=== PATIENT | female | born 1955 | race Caucasian/White ===

== ENCOUNTER → 2022-03-03 14:06 | Outpatient (CLI) | payer MEDICARE, BC, OTHER, SELFPAY ==
--- NOTE | 2022-03-03 14:15 | DI.US.S_ITS ---
PROCEDURE: US ABDOMEN LIMITED INDICATIONS: Right upper quadrant pain TECHNIQUE: Real-time focused scanning was performed of the abdomen, with image documentation. COMPARISON: None. FINDINGS: The liver demonstrates normal size. The liver demonstrates generalized moderately increased echogenicity. This decreases ultrasound sensitivity for detection of hepatic masses. No findings of gallstones or sludge are seen. The gallbladder wall is not thickened, measuring 3 mm or less. No specific pericholecystic fluid is seen. The sonographic Villafuerte sign is negative. There is no biliary dilatation, the common bile duct measures 4 mm. No significant pancreatic abnormality is seen on these images. IMPRESSION: The gallbladder demonstrates a normal sonographic appearance. No biliary dilatation is seen. The liver demonstrates increased echogenicity. This finding is nonspecific, yet it is most commonly attributed to fatty infiltration. Dictated by: Koko Sharpe M.D. on 03/03/2022 at 14:24 Approved by: Koko Sharpe M.D. on 03/03/2022 at 14:24
== END ==
PROVIDERS: Referring Provider Physician Assistant; Visit Provider Physician Assistant
DX: R10.11 Right upper quadrant pain (principal)
CPT/HCPCS: 76705

== ENCOUNTER → 2022-07-14 10:51 | Outpatient (CLI) | payer MEDICARE, BC, OTHER, SELFPAY ==
--- NOTE | 2022-07-14 11:07 | DI.DEXA.S_ITS ---
Bone Density Report Name: RAKAN VO Age: 67 Sex: Female Ethnicity: White Date of : 1955 Indication: postmenopausal; screening for osteoporosis; Referring Provider: MARIA DOLORES ALDANA Study: Bone densitometry was performed. Exam Date: July 14, 2022 Accession number: [id number] Bone Density: Region BMD T-score Z-score Classification AP Spine(L1-L4) 1.160 1.0 2.8 Normal Femoral Neck (Left) 0.841 -0.1 1.5 Normal Total Hip (Left) 1.029 0.7 2.0 Normal Femoral Neck (Right) 0.836 -0.1 1.4 Normal Total Hip (Right) 1.051 0.9 2.1 Normal Total Hip Mean 1.040 0.8 2.1 Normal World Health Organization criteria for BMD impression classify patients as: Normal (T-score at or above -1.0), Osteopenia (T-score between -1.0 and -2.5), or Osteoporosis (T-score at or below -2.5). 10-year Fracture Risk: FRAX not reported because: All T-scores for Spine Total, Hip Total, Femoral Neck at or above -1.0 Impression: The patient has normal bone mass. Discussion: BONE DENSITY IS ABOVE THE MINIMUM DESIRABLE LEVEL AT ALL SKELETAL SITES TESTED. This patient?s bone mineral density is above the minimum desirable level (T-score -1.0 or better) at all sites measured. The patient should follow a healthful lifestyle (good nutrition with adequate calcium and vitamin D, and appropriate weight-bearing exercise). Follow-Up: Consider repeating this study in 5 years or sooner if there is some new clinical indication. Reported by: JASMIN CAMILO M.D. on 07/14/2022 11:14:00 AM.
== END ==
PROVIDERS: PCP Physician Assistant; Referring Provider Physician Assistant; Visit Provider Physician Assistant
DX: Z78.0 Asymptomatic menopausal state (principal); Z13.820 Encounter for screening for osteoporosis
CPT/HCPCS: 77080

== ENCOUNTER → 2022-09-06 14:40 | Outpatient (CLI) | payer MEDICARE, BC, OTHER, SELFPAY ==
--- NOTE | 2022-09-06 | DI.RAD.S_ITS ---
PROCEDURE: XR ELBOW RT MIN 3V INDICATIONS: PAIN X2 MONTHS TECHNIQUE: 3 views of the elbow were acquired. COMPARISON: None. FINDINGS: Bones: No fractures or dislocations. No suspicious bony lesions. Dfgs-jt-mwyvjxer osteoarthritic changes with prominent periarticular osteophyte in coronoid process and olecranon. Soft tissues: No elbow joint effusion. No suspicious soft tissue calcifications. IMPRESSION: Dfvq-vj-vhtfndtw osteoarthritis. Dictated by: Lucila Simpson M.D. on 09/07/2022 at 8:40 Approved by: Lucila Simpson M.D. on 09/07/2022 at 8:42
== END ==
PROVIDERS: PCP Physician Assistant; Referring Provider Physician Assistant; Visit Provider Physician Assistant
DX: M19.021 Primary osteoarthritis, right elbow (principal); M25.521 Pain in right elbow
CPT/HCPCS: 73080

== ENCOUNTER → 2022-09-21 12:19 | Outpatient (CLI) | payer MEDICARE, BC, OTHER, SELFPAY ==
--- NOTE | 2022-09-21 | DI.MG.S_ITS ---
BILATERAL DIGITAL SCREENING MAMMOGRAM 3D/2D WITH CAD: 09/21/2022 CLINICAL: Routine screening. Family history of breast cancer. Comparison is made to exams dated: 04/28/2019 mammogram and 05/23/2018 mammogram - outside. Both breasts are heterogeneously dense, which may obscure small masses (category c / 51-75% glandular tissue). Current study was also evaluated with a Computer Aided Detection (CAD) system. No significant masses, calcifications, or other findings are seen in either breast. There has been no significant interval change. IMPRESSION: NEGATIVE There is no mammographic evidence of malignancy. A 1 year screening mammogram is recommended. Based on the Tyrer Cuzick model (a risk assessment model) the patient's lifetime risk is 5.4% and her 10 year risk is 2.6%. According to the ACR, ACS, and NCCN guidelines, an annual breast MRI exam along with mammogram is recommended if the patient's lifetime risk is 20% or greater. This exam was interpreted at Station ID: [id number]. NOTE: For mammograms, a report in lay terms will be sent to the patient. Approximately 15% of breast malignancies will not be visualized mammographically. In the management of a palpable breast mass, a negative mammogram must not discourage biopsy of a clinically suspicious lesion. Electronically Signed By: Gerald sofia/tu:09/21/2022 18:41:18 letter sent: Normal Exam ACR BI-RADS Category 1: Negative [id number]
== END ==
PROVIDERS: PCP Physician Assistant; Referring Provider Physician Assistant; Visit Provider Physician Assistant
DX: Z12.31 Encounter for screening mammogram for malignant neoplasm of breast (principal); Z80.3 Family history of malignant neoplasm of breast
CPT/HCPCS: 77063; 77067

== ENCOUNTER → 2022-10-10 13:48 | Outpatient (CLI) | payer MEDICARE, BC, OTHER, SELFPAY ==
--- NOTE | 2022-10-10 | DI.RAD.S_ITS ---
PROCEDURE: XR PELVIS 1-2V INDICATIONS: Radiculopathy, sacral and sacrococcygeal region TECHNIQUE: 1 view(s) of the pelvis acquired. COMPARISON: None. FINDINGS: Bones: No fractures or dislocations. No suspicious bony lesions. Mild bilateral hip osteoarthritis. Soft tissues: Visualized bowel gas pattern is normal. Coarse calcification projects over the mid pelvis possibly related to uterine fibroid. IMPRESSION: Mild bilateral hip osteoarthritis. Dictated by: Ly Sarmiento MD, PhD on 10/10/2022 at 14:18 Approved by: Ly Sarmiento MD, PhD on 10/10/2022 at 14:19
== END ==
PROVIDERS: PCP Physician Assistant; Referring Provider Specialist; Visit Provider Specialist
DX: M54.18 Radiculopathy, sacral and sacrococcygeal region (principal); M16.0 Bilateral primary osteoarthritis of hip
CPT/HCPCS: 72170

== ENCOUNTER → 2024-03-16 10:50 | Outpatient (CLI) | payer MEDICARE, OTHER, SELFPAY ==
--- NOTE | 2024-03-16 10:54 | DI.MRI.S_ITS ---
PROCEDURE: MR KNEE RT WO CON INDICATIONS: Effusion, right knee TECHNIQUE: Noncontrast sagittal PD fast spin echo and T2 fast spin echo with fat saturation, sagittal 3-D FLASH with fat saturation; coronal T1 spin echo and PD fast spin echo with fat saturation, and axial PD fast spin echo with fat saturation through the knee. COMPARISON: [facility] [place], CR, XR KNEE 4+ VIEWS RIGHT, 04/12/2023, 10:07. [facility] [place], CR, XR KNEE ARTHRITIC SERIES BI, 10/26/2023, 10:57. FINDINGS: Image quality: Excellent. Anterior cruciate ligament: Intact. Posterior cruciate ligament: Intact. Medial collateral ligament: Intact. Lateral collateral ligament: Intact. Medial meniscus: Complex degenerative tearing and maceration of the medial meniscus, including a deep radial component at the meniscal body with associated meniscal extrusion. Lateral meniscus: Focal vertical longitudinal tearing of the anterior root attachment. Intrasubstance degeneration in the meniscal body. Medial and lateral tendons: The semimembranosus tendon insertions appear intact. Visualized portions of the pes anserinus tendons appear normal. The popliteus tendon is intact. Iliotibial band appears normal. Anterior structures: The quadriceps and patellar tendons appear intact. No patellar subluxation. No femoral trochlear dysplasia or ventral trochlear prominence. No edema in the infrapatellar fat pad. Bones: No bone marrow contusions or fractures. Medial femorotibial cartilage: Diffuse full thickness cartilage loss throughout the weight-bearing portion of the medial femorotibial compartment with moderate subchondral edema as well as subchondral cystic changes and marginal osteophyte formation. There is likely mild remodeling of the medial tibial plateau articular surface. Lateral femorotibial cartilage: Partial-thickness cartilage irregularity in the weight-bearing portion. Full-thickness cartilage loss is seen at the anterior weight-bearing portion of the lateral femoral condyle with subchondral osteophyte formation. Marginal osteophytes are present. Patellofemoral cartilage: High-grade partial-thickness cartilage loss throughout the patella with small marginal osteophytes. Partial-thickness cartilage irregularity is seen in the femoral trochlea, most notably at the trochlear groove. Soft tissues: Moderate to large joint effusion. Small medial popliteal cyst. The visualized musculature is age-appropriate in bulk. IMPRESSION: 1. Full-thickness cartilage loss throughout the weight-bearing portion of the medial femorotibial compartment with moderate subchondral edema and subchondral cystic changes. Focal full-thickness cartilage loss in the lateral compartment. Grade 3 chondromalacia in the patellofemoral compartment. 2. Complex degenerative tearing and maceration of the medial meniscus including a dominant radial component at the meniscal body and extrusion of the meniscus beyond the femorotibial joint line. 3. Focal vertical longitudinal tearing of the lateral meniscus at the anterior root attachment superimposed on labral degeneration. 4. Cruciate and collateral ligaments are intact. 5. Moderate to large joint effusion. Small medial popliteal cyst. Approved by: Bill Gerardo M.D. on 03/17/2024 at 11:31
== END ==
LOC: MRI 10:53
PROVIDERS: PCP Physician Assistant; Referring Provider Specialist; Visit Provider Specialist
DX: S83.231A Complex tear of medial meniscus, current injury, right knee, initial encounter (principal); S83.281A Other tear of lateral meniscus, current injury, right knee, initial encounter; M22.41 Chondromalacia patellae, right knee; M25.461 Effusion, right knee; M25.561 Pain in right knee; M25.361 Other instability, right knee; M71.21 Synovial cyst of popliteal space [Baker], right knee
CPT/HCPCS: 73721

== ENCOUNTER → 2024-09-04 08:57 | Outpatient (CLI) | payer MEDICARE, OTHER, SELFPAY ==
--- NOTE | 2024-09-04 08:59 | DI.US.S_ITS ---
PROCEDURE: US ABDOMEN COMPLETE INDICATIONS: ABNORMAL LABS ?CIRRHOSIS OR HEPATOSPLENOMEGALY TECHNIQUE: Real-time scanning was performed of the abdominal and retroperitoneal organs, with image documentation. COMPARISON: [facility], , US ABDOMEN LIMITED, 03/03/2022, 14:20. FINDINGS: Liver: Hepatic parenchyma shows diffuse increased echogenicity consistent with fatty infiltration. Gallbladder: Sonolucent without evidence cholelithiasis, gallbladder wall thickening or pericholecystic fluid. No sonographic Villafuerte sign. Biliary ducts: Intrahepatic bile ducts are non-dilated. Extrahepatic bile duct caliber measures 3 mm. Normal is 6-7 mm or less in diameter, or 10 mm or less post-cholecystectomy. Pancreas: Visualized portions of the pancreas are sonographically normal. Spleen: Spleen is normal in size and homogeneous in echotexture. Kidneys: Kidneys are normal in size and echotexture. Right kidney measures 8.7 cm long; left kidney measures 10.3 cm long. No hydronephrosis or nephrolithiasis. No solid masses. Aorta: Visualized aorta is normal in caliber at less than 3 cm. Iliacs: Proximal common iliac arteries are normal in caliber at less than 2.5 cm. IVC: Intrahepatic inferior vena cava is patent. Miscellaneous: No free abdominal fluid. IMPRESSION: Hepatic steatosis without focal mass lesion Approved by: Salty Matute M.D. on 09/04/2024 at 16:05
== END ==
PROVIDERS: PCP Physician Assistant; Referring Provider Physician Assistant; Visit Provider Physician Assistant
DX: K76.0 Fatty (change of) liver, not elsewhere classified (principal); R89.9 Unspecified abnormal finding in specimens from other organs, systems and tissues
CPT/HCPCS: 76700

== ENCOUNTER → 2024-10-14 13:52 | Outpatient (CLI) | payer MEDICARE, OTHER, SELFPAY ==
--- NOTE | 2024-10-14 14:14 | EKG_ITS ---
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
--- NOTE | 2024-10-14 14:24 | DI.MG.S_ITS ---
MM screening mammo BI: 10/14/2024. BI-RADS: 1 CLINICAL: 69-year old female for bilateral screening mammogram. Tyrer-Cuzick lifetime risk of 13.0%. Current reported family history of breast cancer: sister and second sister. PRIOR EXAMS 09/21/2022, 04/28/2019. MAMMOGRAPHY TECHNIQUE: 2D and 3D (tomosynthesis) digital mammographic views obtained, with additional images as needed for full coverage. Current study was also evaluated with a Computer Aided Detection (CAD) system. DENSITY C. The breasts are heterogeneously dense, which may obscure small masses. MAMMOGRAPHY FINDINGS Bilateral: No suspicious mass, asymmetry, microcalcification, or other abnormality seen. No significant change from comparison. IMPRESSION: * No evidence of malignancy. RECOMMENDATIONS Bilateral * Annual screening mammography. OVERALL ASSESSMENT CATEGORY BI-RADS-1: Negative. The [employer] [place] [employer] recommends annual screening mammography beginning at age 40 for women with average risk of breast cancer. ELECTRONICALLY SIGNED: Deepali Love M.D. on 10/14/2024 at 09:04:59 PM PT Interpreting Station ID: [id number]
[2024-10-14 14:48] LABS: Add Manual Diff / Slide Review NO; Hematocrit 35.9 % (36-46); Hemoglobin 12.3 g/dL (12.0-16.0); Lymphocytes Absolute Auto 1500 /uL (1100-4500); Mean Corpuscular HGB Conc 34.2 % (30-36); Mean Corpuscular Hemoglobin 31.7 PG (26-34); Mean Corpuscular Volume 92.7 fL (80-100); Platelet Count 253 X10^3/uL (150-400)
[2024-10-14 15:06] LABS: HEMOLYSIS < 15 (0-50)
[2024-10-14 15:10] LABS: Albumin 4.2 g/dL (3.5-5.0); Blood Urea Nitrogen 26 mg/dL (7-17); Calcium 9.5 mg/dL (8.4-10.2); Carbon Dioxide 27 mmol/L (22-32); Chloride 102 mmol/L (98-107); Estimated Glomerular Filt Rate > 60 mL/min (>60); Glucose 89 mg/dL (70-99); Potassium 4.5 mmol/L (3.4-5.1); Sodium 137 mmol/L (137-145)
[2024-10-14 15:13] LABS: Hemoglobin A1C% w Est Avg Glu 5.6 % (4.0-6.0)
[2024-10-14 16:27] LABS: Vitamin D 25 Hydroxy (D3) 51.2 ng/mL (30.0-100.0)
[2024-10-14 22:00] LABS: Prealbumin 30.1 mg/dL (17.6-36.0)
== END ==
PROVIDERS: PCP Physician Assistant; Referring Provider Physician Assistant; Visit Provider Orthopaedic Surgery Adult Reconstructive Orthopaedic Surgery
DX: Z12.31 Encounter for screening mammogram for malignant neoplasm of breast (principal); Z01.818 Encounter for other preprocedural examination; Z80.3 Family history of malignant neoplasm of breast; R92.333 Mammographic heterogeneous density, bilateral breasts; E11.9 Type 2 diabetes mellitus without complications; E55.9 Vitamin D deficiency, unspecified
CPT/HCPCS: 36415; 77063; 77067; 80048; 82040; 82306; 83036; 84134; 85025; 93005

== ENCOUNTER → 2024-12-15 16:51 | Outpatient (CLI) | payer MEDICARE, OTHER, SELFPAY ==
[2024-12-15 17:51] LABS: COVID-19 CEPHEID 4-PLEX PCR POSITIVE (Negative); Influenza A - CEPHEID Flu A NEGATIVE (NEGATIVE); Influenza B - CEPHEID Flu B NEGATIVE (NEGATIVE)
== END ==
PROVIDERS: Family Provider Physician Assistant; PCP Physician Assistant; Visit Provider Registered Nurse
DX: J02.9 Acute pharyngitis, unspecified (principal)
CPT/HCPCS: 87637

== ENCOUNTER 2024-12-29 06:29 | Day surgery (SDC) | payer MEDICARE, OTHER, SELFPAY ==
[2024-12-15 08:00] VITALS: BMI 27.4
[2024-12-29] VITALS (9 sets, daily range): BP systolic 112–165; BP diastolic 55–79; PULSE 15–86; RESP 10–66; TEMP 36.4–37; O2SAT 94–100; BMI 27.4
--- NOTE | 2024-12-29 07:48 | P.HP_ITS ---
History of Present Illness History of Present Illness Chief complaint: right TKA Surgery w/outpatient bed Narrative: CHIEF COMPLAINT I'm here for my right total knee arthroplasty. SUBJECTIVE The patient has been experiencing severe right knee pain which has been refractory to multiple nonoperative modalities. The patient has expressed a preference for not using strong pain medications such as oxycodone unless it is absolutely necessary and only for breakthrough pain. The patient has also indicated that they have had medical anxiety and panic attacks in the past, which they have not typically discussed with others. The patient has been managing pain with Tylenol, baby aspirin, and Celebrex. The patient is concerned about potential medication interactions, particularly those that might affect mental function. SOCIAL HISTORY - The patient is involved in a [employer] group every Sunday. PERTINENT PMH - History of medical anxiety and panic attacks. PRIOR HIP/KNEE PROCEDURES None PHYSICAL EXAM Knee Exam: No open wounds. TTP around knee. SILT L2-S1 ASSESSMENT Severe right knee osteoarthritis refractory to conservative management, necessitating right total knee arthroplasty. PLAN The patient is scheduled for a right total knee arthroplasty. I discussed the medication regimen postoperatively, including the use of Tylenol, baby aspirin, and Celebrex. The patient is advised to avoid strong pain medications unless necessary for breakthrough pain. I provided instructions on physical activity post-surgery, emphasizing the importance of ambulation to prevent blood clots while limiting steps to less than 1,000 per day initially. - Schedule for right total knee arthroplasty. - Continue baby aspirin and Celebrex as discussed. - Use Tylenol as needed up to 3,000 mg per day. - Avoid oxycodone unless breakthrough pain occurs. - Follow postoperative physical therapy instructions. SURGICAL PLAN The patient has exhausted, conservative measures and is likely a candidate for total knee arthroplasty. We will begin the preoperative optimization process in anticipation of eventually scheduling surgery. We will ensure that the patient is an appropriate candidate for this surgery by evaluating their laboratory results, EKG, baseline medical conditions and medications prior to scheduling t he surgery. The risks and benefits of major elective surgery in the form of a knee replacement were discussed today in detail with the patient. All of the patient's questions were answered. Additional patient education materials regarding the risks, benefits, and outcomes associated with total knee arthroplasty were provided to the patient in an online patient counseling series which can be viewed at the following link: [email or web address]. There are both medical and surgical risks associated with total knee replacements and these have been outlined in detail to the patient. These medical risks include DVT/blood clots which can sometimes travel to the lung and be lethal as well as pneumonia, heart attacks, acute kidney injuries and other medical complications. The most serious surgical complication is a periprosthetic joint infection which can be very difficult to treat and requires repeat surgery. The 5 year mortality of a periprosthetic joint infection is 25% in some studies. The most common reasons for repeat knee surgery - also known as revision surgery - have also been provided to the patient with data from the [place] [employer] Joint Replacement Registry. We have also discussed that other less common medical and surgical complications can occur. Additionally, we have reviewed the patient satisfaction rate of 85% with total knee arthroplasty which means that even if there are no major complications with their knee replacement there is a 15% risk they will not be satisfied with their final result. I encouraged the patient to followup with additional questions at future visits after they have had time to review and consider the risks and benefits of this surgery before moving forward with it. PLANNED SURGICAL PROCEDURE AND IMPLANTS: Right total knee arthroplasty using cemented Zulay Persona with unresurfaced patella PERIOPERATIVE CONSIDERATIONS: - Monitor for anxiety during perioperative period. - Avoid opioids unless there is breakthrough pain. POSTOPERATIVE DVT PROPHYLAXIS: Aspirin 81 mg BID XRAYS AT NEXT VISIT: Long-leg scanogram PLAIN LANGUAGE SUMMARY We are planning for your right total knee replacement surgery. You've tried many treatments already, and this surgery should help relieve your knee pain. We'll make sure you're ready for surgery by checking your medical conditions and medication. After surgery, you'll take baby aspirin to prevent blood clots and continue with your current pain management plan. Avoid using oxycodone unless absolutely necessary. We'll start gentle movements and slowly increase activity to help with healing while avoiding too many steps at first. If you have any questions, feel free to ask at your follow-up visits. FOLLOWUP - Follow up as needed with no specific imaging required unless otherwise ind icated. [facility] Medical History (Updated 12/22/24 @ 10:55 by Niki Buitrago RN) COVID-19 (12/15/24) Anxiety Fatty liver disease, nonalcoholic HLD (hyperlipidemia) Primary osteoarthritis of right knee Osteoarthritis Asthma Knee pain (~2021) Tinnitus (~1998) Hearing loss (~1998) Gastritis (~2020) Diverticular disease (~2020) PFD (pelvic floor dysfunction) Chronic pelvic pain syndrome in female Surgical History Anesthesia Social History household members: spouse Smoking Status: Former smoker alcohol intake: former Meds Home Medications and Allergies Home Medications ?Medication ?Instructions ?Recorded ?Confirmed ?Type progesterone micronized 200 mg 200 mg PO ONCE PM 12/0612/29/24 History capsule conjugated estrogens 0.3 mg tablet 0.3 mg PO DAILY 12/29/24 History testosterone 10 mg/0.5 1 pump transdermal QAM 09/1812/29/24 History gram/actuation transdermal gel pump acetaminophen 500 mg tablet 1,000 mg (2 x 500 mg) PO Q 8H PRN 11/12/24 12/15/24 Rx (Tylenol Extra Strength) post-op pain #60 tabs docusate sodium 100 mg capsule 100 mg PO BID PRN Post op 11/12/24 12/15/24 Rx (Colace) constipation #60 caps ondansetron 4 mg disintegrating 4 mg PO Q8H PRN Post o p nausea and 11/12/24 12/15/24 Rx tablet vomiting #7 tabs oxycodone 5 mg tablet 5 mg PO Q6H PRN Post op pain #25 11/12/24 12/15/24 Rx tabs pantoprazole 40 mg tablet,delayed 40 mg PO DAILY #60 t abs 11/12/24 12/29/24 Rx release celecoxib 200 mg capsule (Celebrex) [address] PO DAILY Po [address] op. #30 caps 12/10/24 12/15/24 Rx melatonin 1 mg tablet 1 mg PO BEDTIME 12/15/2409/17 History Allergies Allergy/AdvReac Type Severity Reaction Status Date / Time epinephrine AdvReac Severe Seizure Verified 12/29/24 07:29 hydroxychloroquine AdvReac SOB, rash. Verified 12/29/24 07:29 Objective Labs Labs: Laboratory Results - last 24 hr 12/29/24 07:40 POC Whole Bld Glucose 97 Assessment & Plan Time-Based Coding :: [TOTAL MINUTES] spent with patient and on the chart (including review of chart, obtaining history, exam, reviewing outside data, placing orders, documenting exam and treatment plan, and counseling patient) on [DATE]. PROFEE Paper Handler Document charge(s): No
[2024-12-29] MEDS: ACETAMINOPHEN 325 MG TABLET 975 MG PO (07:49)
[2024-12-29] MEDS: LACTATED RINGERS 1,000 ML 42 ML IV ×2 (07:49→12:13)
--- NOTE | 2024-12-29 07:54 | DI.RAD.S_ITS ---
PROCEDURE: XR KNEE RT 1TO2V INDICATIONS: TKA TECHNIQUE: 2 view(s) of the knee acquired. COMPARISON: None. FINDINGS: Bones: Patient is status post knee joint arthroplasty. Hardware components are in expected positions. Visualized bony structures are intact. Soft tissues: Overlying postoperative changes are noted. IMPRESSION: Expected post-operative appearance of a knee arthroplasty. Dictated by: Sahil Perez M.D. on 12/29/2024 at 13:26 Approved by: Sahil Perez M.D. on 12/29/2024 at 13:26
[2024-12-29] MEDS: TRANEXAMIC ACID 1,000 MG VIAL 1000 MG INJ ×2 (09:51→11:02)
[2024-12-29] MEDS: KETOROLAC 30 MG/ML VIAL 15 MG INJ (10:13)
--- NOTE | 2024-12-29 10:18 | SUR.OPER ---
Supine on padded OR bed. Pillow under head, arms secured on padded armboards <90 degree abduction. Safety belt across torso. Non-operative leg secured with tape over blanket over lower leg. Operative leg secured in DeMayo/Walter/Nathe positioner. Foam padded brace at thigh of operative leg. All pressure points padded and covered, PA in room at time of positioning, approved final position.
--- NOTE | 2024-12-29 11:28 | P.OP_ITS ---
Operative Date/Time/Diagnoses Date of procedure: 12/29/24 Time of procedure: 10:00 Pre-op diagnosis: Right knee osteoarthritis Post-op diagnosis: same Procedure & Clinicians Procedure: Right total knee arthroplasty Same procedure(s) as scheduled: Yes Surgeon: Salty Collins Assisted?: Yes Rags Laborer: Lala Tom Anesthesia Type: Spinal, MAC +/- and Local Operative Notes Findings: Severe arthritis Closure Type: primary Applied: implant(s) Estimated Blood Loss (mL): 50 Tourniquet time (min): 52 Procedure in detail: Right Gap-Balanced Zluay Persona Medial-Congruent Primary Total Knee Arthroplasty Implants: * Size 8 narrow Cruciate Retaining Femoral Component * Size E Tibial Component * Size 10 Medial Congruent Polyethylene Insert * Unresurfaced Patella Procedure Summary: This 69-year-old female patient had relatively low bone quality so I utilized uncemented fixation for her total knee arthroplasty. She had varus arthritis so I cut the tibia in slight varus. The result of this was approximately 1 degree of medial tightness relative to the lateral compartment and terminal extension. The flexion gap balanced at 0? of external rotation. I performed a medial reduction osteotomy at the conclusion of the case in order to attempt to equalize any residual medial tightness. Balancing was excellent throughout. Minimal cuts were utilized and a 10 mm polyethylene insert was used as the 11 mm allowed full extension but only when the knee was pushed. Procedure in Detail: This patient was seen preoperatively and evaluated for knee pain which was refractory to numerous nonoperative treatment modalities. Their pain correlated with radiographic changes demonstrating significant degeneration in the knee joint. The risks and benefits of continued nonoperative management versus operative management were discussed at length and all of the patient?s questions were answered. Additional educational materials providing further details beyond our discussion in clinic were provided via a publicly available patient education video which included the incidence of medical complications associated with total knee arthroplasty, reasons for revision following total knee arthropl asty, and patient satisfaction rates following total knee arthroplasty. With this understanding of the risks inherent to the procedure, the patient elected to move forward with operative management. Following preoperative optimization, the patient was scheduled for surgery. The patient was met in the preoperative holding area the day of the procedure and all questions were answered. The patient?s nares were swabbed in order to decolonize them from MRSA. Informed consent was signed and the right limb was marked with indelible ink.? The patient was brought back to the operating room where anesthesia was induced. The patient was transferred to the operating table and all bony prominences were padded. The operative site was prepped and draped in the usual sterile fashion. A second prep stick was utilized following drape placement. The incision was marked corresponding to the medial aspect of the tibial tubercle and the patella. Ioban was wrapped circumferentially around the knee. Prior to incision, tranexamic acid and cefazolin were administered. Templating images were displayed. A timeout procedure was performed verifying the patient?s identity, medical comorbidities, allergies, relevant medications, anesthesia type and the surgical plan. All present were in agreement. The assistance of a physician assistant chief train dispatcher was required for positioning, room setup, soft tissue retraction and wound closure. Without this assistance, the procedure would have been significantly more challenging and time consuming.?? The tourniquet was inflated prior to incision. I made an anterior incision over the knee, dissected through the subcutaneous tissues and identified the lateral border of the VMO. Medial and lateral soft tissue flaps were developed. A mid- vastus arthrotomy was performed ensuring that adequate capsular tissue would remain for closure at the conclusion of the procedure. The knee was brought into extension and the medial soft tissues were released off the joint line of the tibia. Tissue overlying the distal anterior femur was released to allow for later assessment for anterior notching but left in place. A portion of the retropatellar fat pad was excised while protecting the patellar tendon. The patella was everted. The patella was not resurfaced. Osteophytes were excised and a lateral facetectomy was performed. The patella was released from its everted position.?? I flexed the knee to 90 degrees and placed retractors to allow access to the notch. An opening reamer was used to gain access to the femoral canal and an intramedullary odalis was introduced into the canal. Diaphyseal fit was obtained in order to plan a distal femoral resection at 5 degrees relative to the anatomic axis. A +0 resection was planned and assessed using an stiven wing. I then made the cut using a sagittal saw. This provided additional access to the femoral notch. The ACL and PCL were excised. Retractors were placed on the lateral and medial tibia. I hyperflexed the knee while externally rotating it to sublux the tibia anteriorly. I placed a Jian retractor posteriorly and used this to provide additional anterior subluxation. The remainder of the PCL root was released. An extramedullary guide was positioned for a resection in slight varus. A +4 resection off the medial tibia was planned and the tibial cutting jig was pinned in place. I evaluated the depth, varus-valgus alignment and slope of the planned tibial resection prior to making the cut. I cut the tibia with a sagittal saw while using retractors to protect the MCL, patellar tendon, and posterolateral structures.? The knee was repositioned in extension and the Fuzion soft tissue balancing gauge was introduced. This demonstrated that there was very nearly exactly equal tension between the medial and lateral compartments with the medial side approximately 1 degree tighter than the lateral side. I anticipated that with removal of some medial osteophytes this would equalize. When 70 pounds of force was applied to the Fuzion device, the extension gap opened to 10 mm. I moved the knee into 90 degrees of flexion, and the Fuzion device was recalibrated by removing a 9 mm darrell to allow assessment of the flexion gap. The Fuzion block was placed perpendicular to the resected surface of the tibia and the resected surface of the distal femur. Seventy pounds of traction was applied to match the tension of the extension gap. This externally rotated the femur to 0 degrees. Pins were placed in the 10 mm holes. Appropriate sizing was determined and a 4-in-1 block was placed. This was double checked using the Fuzion device to ensure that it would open to an equal distance as the extension gap when the same amount of force was applied. The Fuzion block was also used to assess flexion gap symmetry. An stiven wing was used to ensure there would be no anterior notching. Retractors were placed to protect the soft tissues during resection. Captured cuts were performed with a sagittal saw for the anterior and posterior femur as well as the corresponding chamfers.?A laminar recruitment manager and retractors were used to expose the posterior knee and the menisci and posterior osteophytes were removed. Trial components were placed and the construct was assessed. Range of motion was assessed by ensuring the knee could achieve full extension and assessing maximum passive knee flexion by elevating the femur and allowing the heel to passively fall towards the buttock. Gap symmetry was assessed by stressing the medial and lateral compartments in both extension and flexion. Laxity was assessed in both extension and flexion and the polyethylene trial was adjusted with shims as necessary. Patellar tracking was assessed with knee flexion. Once satisfied with the construct, I moved forward with implant insertion. Lug holes were drilled in the femur and the tibia was prepped ensuring appropriate sizing and rotation relative to the tibial tubercle.?? The bony ends were irrigated and cement was prepared. Portions of the anterior chamfer cut were utilized as a cement restrictor in the femur. Cement was placed on the entirety of the undersurface of both the tibial and femoral components. Cement was placed onto the dry tibia and pressurized into the cancellous bone. I impacted the tibial component into place. Cement was removed. The tibia was reduced underneath the femur and placed cement onto the dry surface of the resected femur. I placed the femoral component as well as the intended polyethylene trial. Cement was removed from around the femur. I brought the knee into extension and manually pressurized the construct by pushing on the heel while the cement dried. The knee was bathed in a dilute mixture of betadine and peroxide. A mixture of Ropivacaine, Epinephrine and Toradol was infiltrated throughout the soft tissues into structures including the VMO, patellar tendon, quadriceps tendon, MCL and femoral periosteum. The knee was copiously irrigated with pulse lavage. Once cement had been allowed to dry the knee was again trialed. Range of motion was assessed by ensuring the knee could achieve full extension and assessing maximum passive knee flexion by elevating the femur and allowing the heel to passively fall towards the buttock. Gap symmetry was assessed by stressing the medial and lateral compartments in both extension and flexion. Laxity was assessed in both extension and flexion and the polyethylene trial was adjusted with shims as necessary. Patellar tracking was assessed with knee flexion. The tourniquet was let down and the polyethylene trial was removed. I inspected the knee inspected for excess cement and any residual bleeding. Once hemostasis was achieved I inserted the final polyethylene and ensured appropriate engagement of the dovetail locking mechanism.?? The arthrotomy was closed with non-absorbable interrupted suture ensuring that this extended to the top of the arthrotomy. This was backed up with running barbed suture throughout the arthrotomy. The skin was closed with 2-0 and 3-0 sutures. Surgical glue was applied and a soft dressing was placed.?The sponge, instrument and needle counts were reported as being correct at the end of the case. The patient was transferred from the operating table back to a stretcher. The patient emerged from anesthesia without difficulty and was taken to the PACU in a stable condition.? Plan for aftercare: * Weightbearing as tolerated * Aspirin 81 twice per day for DVT prophylaxis * Multimodal pain regimen with no IV opioids ordered * Anticipate discharge home later today * Follow up at [facility] in 2 weeks for wound check Complications: none Post-operative Condition: stable Disposition: PACU
[2024-12-29] MEDS: hydrOXYzine 50 MG/ML INJ 25 MG IM (12:20)
--- NOTE | 2024-12-29 13:34 | SUR.PHASEII ---
physical therapy at bedside.
--- NOTE | 2024-12-29 14:14 | PT.IIE ---
Current Diagnoses Unilateral primary osteoarthritis, right knee (12/29/24) Surgery Performed Operation Date: 12/29/24 10:30 Actual Procedures p Total Knee Arthroplasty(Right) - Salty Collins MD Surgical History (Last Reviewed 12/15/24 @ 16:44 by JOSELUIS Barrientos) Anesthesia Medical History (Last Updated 12/22/24 @ 10:55 by Niki Buitrago RN) Anxiety Asthma Chronic pelvic pain syndrome in female COVID-19 (12/15/24) Diverticular disease (~2020) Fatty liver disease, nonalcoholic Gastritis (~2020) Hearing loss (~1998) HLD (hyperlipidemia) Knee pain (~2021) Osteoarthritis PFD (pelvic floor dysfunction) Primary osteoarthritis of right knee Tinnitus (~1998) Physical Therapy Inpatient Evaluation/Re-Eval M1 PT/OT-IP Prior Functional Status Start: 12/29/24 13:26 Freq: NEEDED Status: Active Protocol: Document 12/29/24 13:27 [facility] (Rec: 12/29/24 14:14 [facility] [id number]) Medical Review Prior Functional Status Medical History Yes Reviewed Diet/Fluid Regular Consistency Communication WNL Mobility and Gait no AD normally pretty active Activities of Daily indep Living and IADL's 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 Main floor living. Enter/Railing? Home Environment High Toilet,Walk in Shower Home Equipment Front Wheel Walker,Straight Cane Employment Status Retired Additional Social grab bars clipped to toiilet History Comment M2 PT-IP Current Condition Start: 12/29/24 13:26 Freq: NEEDED Status: Active Protocol: Document 12/29/24 13:27 [facility] (Rec: 12/29/24 14:14 [facility] [id number]) Physical Therapy Current Condition Current Condition Evaluation Date 12/29/24 Treatment Diagnosis R TKA M3 PT-IP Subjective Start: 12/29/24 13:26 Freq: NEEDED Status: Active Protocol: Document 12/29/24 13:27 [facility] (Rec: 12/29/24 14:14 [facility] [id number]) Subjective Physical Therapy Visit Type Type Initial Evaluation Visit Start Time 13:28 Visit Stop Time 14:02 Number of CHILD CARE ASSISTANT Visits 0 Physical Therapy Visit Comments Patient Comments plan to go home today. present Therapy Pain Assessment Pain When Pain Assessed At Rest Pain Present Pain Present Pain Reported Location Right Knee Intensity 5 Scale Used Numeric (0 - 10) M4 PT-IP Mobility and Gait Start: 12/29/24 13:26 Freq: NEEDED Status: Active Protocol: Document 12/29/24 13:27 [facility] (Rec: 12/29/24 14:14 [facility] [id number]) PT-Bed Mobility Assessment Supine to Sit Supine to Sit Standby Assistance Sit to Supine Sit to Supine Standby Assistance PT-Transfer Assessment Sit to and From Stand Sit to and from Standby Assistance Stand Equipment Transfer Assistive Gait Belt,Front Wheeled Walker Device Comments Mobility Comments Prior to mobilty, pt had bleeding and RN notified and surgeon fixed incision. supine to sit SBA w/min cues for leg sequence. Sit to stand min CUes for position R knee SBA to FWW and amb 70ft w/SBA w/min cues for gait pattern. LEft with and RN after. Gait Assessment Gait Gait Assistance Standby Assistance Required: Distance (Feet) 70 Able to Maintain Yes Weight Bearing Status During Gait Assistive Devices Assistive Device Front Wheeled Walker Gait Deviations General Gait Pattern Antalgic Factors Limiting Gait Function Factors Limiting Decreased Activity Tolerance,Decreased Strength,Limited Gait Function Range of Motion,Pain PT-Balance Assessment Sitting Balance and Reactions Static Sitting Normal Balance Ability Dynamic Sitting Normal Balance Ability Standing Balance and Reactions Static Standing Good Balance Ability Dynamic Standing Good Balance Ability Device Used FWW M5 PT-IP Objective Assessments Start: 12/29/24 13:26 Freq: NEEDED Status: Active Protocol: Document 12/29/24 13:27 [facility] (Rec: 12/29/24 14:14 [facility] [id number]) Orientation Orientation/Cognition Level of Alertness Alert Language Function Hard of Hearing Ability Safety Awareness Understands Safety Issues Memory Description No Deficits Noted Gross Range of Motion Lower Extremity ROM Assessment Right Impaired Strength Lower Extremity Strength Assessment Right Impaired Knee 3+/5 M6 PT-IP Treatment Start: 12/29/24 13:26 Freq: NEEDED Status: Active Protocol: Document 12/29/24 13:27 [facility] (Rec: 12/29/24 14:14 [facility] [id number]) Physical Therapy Treatment Exercises Exercises Ankle Pumps,Gluteal Sets,Quad Sets,Heel Slides,Straight Leg Raises,Short Arc Quads,Passive Knee Extension Hang ,Seated Knee Flexion/Extension Education Education Provided Precautions,Weight Bearing Status,Post-Op Packet,Safety M7 PT-IP Assessment and Plan Start: 12/29/24 13:26 Freq: NEEDED Status: Active Protocol: Document 12/29/24 13:27 [facility] (Rec: 12/29/24 14:14 [facility] [id number]) PT Summary Assessment and Plan Potential Rehabilitation Good Potential Status of Condition Evolving at Evaluation Summary Impairments Pain,ROM,Strength,Balance,Bed Mobility,Gait,Activity Tolerance Assessment Summary Pt presents day of surgery of R TKA with overall good pain control and good preparation for return home. She has a supportive and has set herself up with home equipment to help with her recovery and has OP PT set up. She did well with mobility w/cues needed only today with all mobility. When medically ready, PT recommendation is DC Home w/assist. Goals Gait Goal Independent Gait Distance 150ft FWW Days to Meet Goals 3 Frequency of Treatment Frequency Of Twice a Day Treatment Treatment Plan Physical Therapy Bed Mobility Training,Transfer Training,Gait Training, Treatment Plan Therapeutic Exercise Weight Bearing Status Weight Bearing Weight Bear as Tolerated Status Recommendations To Nursing Amount of Assist Standby Assistance Needed Discharge Recommendations PT Discharge Home with Assistance,Outpatient PT Recommendations Transportation Needs Private Vehicle at Discharge - PT assist 1
== END 2024-12-29 14:36 | disposition home or self-care (01) ==
LOC: OR 06:31 → AC 06:40
PROVIDERS: Family Provider Physician Assistant; PCP Physician Assistant; Referring Provider Orthopaedic Surgery Adult Reconstructive Orthopaedic Surgery; Visit Provider Orthopaedic Surgery Adult Reconstructive Orthopaedic Surgery
PROC: 0SRC0JZ Replacement of Right Knee Joint with Synthetic Substitute, Open Approach (ICD-10-PCS; CPT 27447; principal; 2024-12-29 10:30)
DX: M17.11 Unilateral primary osteoarthritis, right knee (principal); F41.9 Anxiety disorder, unspecified; F41.0 Panic disorder [episodic paroxysmal anxiety]
CPT/HCPCS: 27447; 73560; 82962; 97162; 97530; C1776; C1713; J0689; J1100; J1171; J1885; J2250; J2405; J2704; J3010; J3410; J7120

== ENCOUNTER → 2025-02-13 10:40 | Outpatient (CLI) | payer MEDICARE, OTHER, SELFPAY ==
[2025-02-13 11:18] LABS: Add Manual Diff / Slide Review NO; Hematocrit 34.9 % (36-46); Hemoglobin 11.9 g/dL (12.0-16.0); Lymphocytes Absolute Auto 1200 /uL (1100-4500); Mean Corpuscular HGB Conc 34.2 % (30-36); Mean Corpuscular Hemoglobin 31.7 PG (26-34); Mean Corpuscular Volume 92.7 fL (80-100); Platelet Count 292 X10^3/uL (150-400)
[2025-02-13 12:44] LABS: Alanine Aminotransferase 17 IU/L (<35); Albumin 4.3 g/dL (3.5-5.0); Albumin Globulin Ratio 1.4 (1.0-2.8); Alkaline Phosphatase 54 U/L (38-126); Blood Urea Nitrogen 24 mg/dL (7-17); Calcium 9.5 mg/dL (8.4-10.2); Carbon Dioxide 30 mmol/L (22-32); Chloride 101 mmol/L (98-107); Estimated Glomerular Filt Rate > 60 mL/min (>60); Globulin 3.0 g/dL (1.7-4.1); Glucose 100 mg/dL (70-99); HEMOLYSIS < 15 (0-50); Potassium 4.5 mmol/L (3.4-5.1); Sodium 140 mmol/L (137-145); Total Protein 7.3 g/dL (6.3-8.2)
== END ==
PROVIDERS: PCP Physician Assistant; Referring Provider Physician Assistant; Visit Provider Orthopaedic Surgery Adult Reconstructive Orthopaedic Surgery
DX: D64.9 Anemia, unspecified (principal); Z96.651 Presence of right artificial knee joint
CPT/HCPCS: 36415; 80053; 85025